=== PATIENT | female | born 1945 ===

== ENCOUNTER 2021-11-14 06:16 | Day surgery (SDC) | payer MEDICARE, OTHER ==
[~2021-11-14] VITALS: Ht 162.6 cm; Wt 80.1 kg
[2021-11-14] MEDS ORDERED: CENTRUM SILVER1 EAC2 PO (06:38)
[2021-11-14] MEDS ORDERED: MOTRIN IB200 MG PO (06:38)
--- NOTE | 2021-11-14 08:03 | NUR ---
11/14/21 0803 DESTINEE AG PT TRANSFERRED TO CHAIR, TOLERATED WELL- NO COMPLAINTS OF PAIN AT THIS TIME
== END 2021-11-14 08:37 | disposition home or self-care (01) ==
LOC: ORSCSDS 06:16
PROVIDERS: Orthopaedic Surgery
PROC: 01N50ZZ Release Median Nerve, Open Approach (ICD-10-PCS; principal; 2021-11-14 07:30)
DX: G56.03 Carpal tunnel syndrome, bilateral upper limbs (principal); E66.9 Obesity, unspecified; I50.9 Heart failure, unspecified; Z68.31 Body mass index [BMI] 31.0-31.9, adult
CPT/HCPCS: J2250; J2704; J3010